=== PATIENT | male | born 1985 | race Caucasian/White ===

== ENCOUNTER → 2019-02-07 | Outpatient (CLI) | payer BC, SELFPAY ==
[2018-08-06 09:46] VITALS: BMI 41.8
[2019-02-07 13:47] LABS: Absolute Lymphocyte Count 2.13 X10^3/uL (0.83-4.51); Absolute Neutrophil Count 3.7 X10^3/uL (2.0-7.7); Basophil# 0.08 X10^3/uL; Basophil% 1.2 % (0-1); Eosinophil# 0.41 X10^3/uL; Hemoglobin 15.1 g/dL (13.0-16.5); Lymphocyte # 2.13 X10^3/ul (4.0); Mean Corp Hgb Conc 34.3 g/dL (32-36); Mean Corpuscular Hgb 29.7 pg (27.0-32.0); Mean Corpuscular Volume 86.4 fL (80-94); Mean Platelet Vol. 11.9 fl (6.2-12.0); Monocyte# 0.46 X10^3/uL; Monocyte% 6.7 % (0-10); NRBC Flagged by Analyzer 0 % (0-5); Neutrophil # 3.73 X10^3/uL (2.7-7.7); Neutrophil % 54.1 % (47-70); Platelet Count 178 K/mm3 (150-450); RBC Distribution Width CV 12.3 % (11.6-14.6); RBC Distribution Width SD 38.9 fl (35.1-43.9); Red Blood Count 5.09 M/mm3 (4.6-6.2); White Blood Count 6.9 K/mm3 (4.4-11.0)
[2019-02-07 14:19] LABS: Vitamin D,25 Hydroxy 24.2 ng/mL (29.95-100.01)
[2019-02-07 14:28] LABS: AST(SGOT) 38 U/L (15-37); Alanine Aminotransfer ALT/SGPT 72 U/L (16-61); Alkaline Phosphatase 92 U/L (45-117); Anion Gap 5 (5-15); BUN 11 mg/dL (7-18); BUN/Creat Ratio 12.5 RATIO (10-20); Calcium,Total 9.2 mg/dL (8.5-10.1); Chloride 104 mmol/L (98-107); Cholesterol 181 mg/dL (200); Creatinine, Serum 0.88 mg/dL (0.70-1.30); EST Glomerular Filtration Rate 105 mL/min (>60); Est Glom Filt Rate - Afr Amer 127 mL/min (>60); Globulin 3.9 g/dL (2.2-4.2); Glucose 162 mg/dL (74-106); High Density Lipoprotein 28 mg/dL; Potassium 3.8 mmol/L (3.5-5.1); Protein, Total 7.9 g/dL (6.4-8.2); Sodium Level 137 mmol/L (136-145); Thyroid Stim Hormone (TSH) 1.42 uIU/mL (0.358-3.74); Triglycerides 212 mg/dL; Very Low Density Lipoprotein 42 mg/dL (5-40)
== END | disposition home or self-care (01) ==
LOC: MFPLAB 12:12
PROVIDERS: Family Provider Family Medicine; PCP Family Medicine; Referring Provider Family Medicine; Visit Provider Family Medicine
DX: E11.65 Type 2 diabetes mellitus with hyperglycemia (principal); E55.9 Vitamin D deficiency, unspecified; C91.01 Acute lymphoblastic leukemia, in remission
CPT/HCPCS: 36415; 80053; 80061; 82306; 84443; 85025

== ENCOUNTER 2019-03-13 12:58 | Outpatient (RCR) | payer BC, SELFPAY ==
[2018-08-06 09:46] VITALS: BMI 41.8
== END 2019-03-27 23:59 ==
LOC: DC 12:58
PROVIDERS: Family Provider Family Medicine; PCP Family Medicine; Visit Provider Family Medicine
DX: E11.65 Type 2 diabetes mellitus with hyperglycemia (principal); Z71.3 Dietary counseling and surveillance
CPT/HCPCS: 97802

== ENCOUNTER 2019-04-10 09:56 | Outpatient (RCR) | payer BC, SELFPAY ==
[2018-08-06 09:46] VITALS: BMI 41.8
== END 2019-04-10 23:59 | disposition home or self-care (01) ==
LOC: DC 09:56
PROVIDERS: Family Provider Family Medicine; PCP Family Medicine; Visit Provider Family Medicine
DX: Z71.3 Dietary counseling and surveillance (principal); E11.65 Type 2 diabetes mellitus with hyperglycemia
CPT/HCPCS: 97803

== ENCOUNTER → 2019-06-30 20:05 | Outpatient (CLI) | payer BC, SELFPAY ==
[2018-08-06 09:46] VITALS: BMI 41.8
== END ==
LOC: SL 20:05
PROVIDERS: Family Provider Family Medicine; PCP Family Medicine; Referring Provider Nurse Practitioner Adult Health; Visit Provider Nurse Practitioner Adult Health
DX: G47.10 Hypersomnia, unspecified (principal)
CPT/HCPCS: 95810

== ENCOUNTER → 2019-08-04 20:00 | Outpatient (CLI) | payer BC, SELFPAY ==
[2018-08-06 09:46] VITALS: BMI 41.8
== END ==
LOC: SL 22:12
PROVIDERS: Family Provider Family Medicine; PCP Family Medicine; Referring Provider Nurse Practitioner Adult Health; Visit Provider Nurse Practitioner Adult Health
DX: G47.33 Obstructive sleep apnea (adult) (pediatric) (principal)
CPT/HCPCS: 95811

== ENCOUNTER → 2019-08-08 07:20 | Outpatient (CLI) | payer BC, SELFPAY ==
[2018-08-06 09:46] VITALS: BMI 41.8
[2019-08-08 10:32] LABS: ALB/GLOB Ratio 1.2 RATIO (0.9-2.4); AST(SGOT) 17 U/L (15-37); Alanine Aminotransfer ALT/SGPT 49 U/L (16-61); Albumin, Serum 4.4 g/dL (3.2-5.0); Alkaline Phosphatase 79 U/L (45-117); Anion Gap 4 (5-15); BUN 14 mg/dL (7-18); BUN/Creat Ratio 13.3 RATIO (10-20); Calcium,Total 9.7 mg/dL (8.5-10.1); Chloride 106 mmol/L (98-107); Cholesterol 162 mg/dL (200); Creatinine, Serum 1.05 mg/dL (0.70-1.30); EST Glomerular Filtration Rate 85 mL/min (>60); Est Glom Filt Rate - Afr Amer 103 mL/min (>60); Globulin 3.6 g/dL (2.2-4.2); Glucose 119 mg/dL (74-106); High Density Lipoprotein 37 mg/dL; Potassium 4.2 mmol/L (3.5-5.1); Sodium Level 139 mmol/L (136-145); Triglycerides 173 mg/dL; Very Low Density Lipoprotein 35 mg/dL (5-40); Vitamin D,25 Hydroxy 16.6 ng/mL (29.95-100.01)
== END ==
PROVIDERS: PCP Family Medicine; Referring Provider Family Medicine; Visit Provider Family Medicine
DX: E78.5 Hyperlipidemia, unspecified (principal); E11.9 Type 2 diabetes mellitus without complications; E55.9 Vitamin D deficiency, unspecified
CPT/HCPCS: 36415; 80053; 80061; 82306

== ENCOUNTER → 2019-08-28 10:36 | Outpatient (CLI) | payer BC, SELFPAY ==
[2018-08-06 09:46] VITALS: BMI 41.8
== END ==
PROVIDERS: PCP Family Medicine; Referring Provider Nurse Practitioner Acute Care; Visit Provider Nurse Practitioner Acute Care
DX: Z46.89 Encounter for fitting and adjustment of other specified devices (principal)

== ENCOUNTER → 2019-12-04 | Outpatient (CLI) | payer BC, SELFPAY ==
[2019-10-02 07:52] VITALS: BMI 41.8
[2019-12-04 12:43] LABS: Vitamin D,25 Hydroxy 33.5 ng/mL
[2019-12-04 12:45] LABS: Anion Gap 9 (5-15); BUN 10 mg/dL (7-18); BUN/Creat Ratio 10.2 RATIO (10-20); Calcium,Total 9.2 mg/dL (8.5-10.1); Chloride 106 mmol/L (98-107); Cholesterol 122 mg/dL (200); Creatinine, Serum 0.98 mg/dL (0.70-1.30); EST Glomerular Filtration Rate 92 mL/min (>60); Est Glom Filt Rate - Afr Amer 112 mL/min (>60); Glucose 121 mg/dL (74-106); High Density Lipoprotein 30 mg/dL; Potassium 4.3 mmol/L (3.5-5.1); Sodium Level 140 mmol/L (136-145); Triglycerides 98 mg/dL; Very Low Density Lipoprotein 20 mg/dL (5-40)
--- OUTSIDE RECORDS SUMMARY | 2020-04-14 09:35 | XMS RPT_ITS | CCD ---
:1985 External Reference #:[id number] Author Organization [facility] Care Team Providers Name Role Phone LESLY MARQUIS (EDITH) Attending Unavailable Results Result Name Value Range Unit Interpretation Flag Date Location progress on 2018-06 Protein mass HNO ID: [id number] Normal 07-08-19 [facility] Author: Bee Melo [place] ([id number]) Service: (none) Author Type: Nurse Practitioner Type: Progress Notes Filed: 07/08/2018 5:47 PM Note Text: Subjective HPI Pt presents with c/o for foreign body in left eye x 10 minut es. States was making salsa and thinks he accidentally wiped a h ot pepper seed into left eye. Could feel the seed moving around beneath upper eyelid. Wipe d it toward tear duct and then felt like it was under eyelid again. Did not actually see the seed in his eye, just felt it floating around. Denies eye pain, vision change. Wears glasses. Review of Systems Constitutional: Negative for chills and fever. Eyes: Negative for blurred vision, double vision, photophobi a, pain, discharge and redness. Objective Physical Exam Constitutional: He is oriented to person, place, and time an d well-developed, well-nourished, and in no distress. No distr ess. HENT: Head: Normocephalic. Right Ear: Hearing, tympanic membrane, external ear and ear canal normal. Left Ear: Hearing, tympanic membrane, external ear and ear c anal normal. Nose: Nose normal. No mucosal edema. Mouth/Throat: Uvula is midline, oropharynx is clear and mois t and mucous membranes are normal. No oropharyngeal exudate. Eyes: Pupils are equal, round, and reactive to light. EOM an d lids are normal. Lids are everted and swept, no foreign bodies found. Left eye exhibits no chemosis, no discharge, no exudate and no hordeo lum. No foreign body present in the left eye. Left conjunctiva is no t injected. Pupils unequal: vision 20/20 via ajay card. Eye exam WNL. After everting the eyelid, pt felt immediate relief of sx. L ooked around for a few minutes and could no longer feel anything in eye, beneath eye lid. Neck: Neck supple. Cardiovascular: Normal rate, regular rhythm and normal heart sounds. Exam reveals no gallop and no friction rub. No murmur heard. Pulmonary/Chest: Effort normal and breath sounds normal. No respiratory distress. He has no wheezes. He has no rales. Neurological: He is alert and oriented to person, place, and time. Skin: Skin is warm and dry. He is not diaphoretic. BP 124/88 Pulse 119 Temp 36.7 ?C (98 ?F) (Left Tympanic) Resp 16 Wt (!) 143.3 kg (316 lb) SpO2 97% BMI 41.69 kg/m? .Patient presents with: Eye Problem: seed in left eye No past medical history on file. No past surgical history on file. ALLERGIES Patient has no known allergies. MEDICATIONS trimethoprim-polymyxin eye drops (POLYTRIM) ophthalmic solut ion Use 1 Drop in both eyes every 6 hours for 7 days. Use in the affected e ye. No family history on file. Social History Substance Use Topics - Smoking status: Former Smoker Types: Cigarettes - Smokeless tobacco: Never Used - Alcohol use Not on file ASSESSMENT/PLAN: 1. Irritation of left eye - ICD9: 379.99, ICD10: H57.89 - POLYMYXIN B SULFATE 10,000 UNIT-TRIMETHOPRIM 1 MG/ML EYE D ROPS Instructed to f/u with opthamologist or ED if sx return estelita ght. Reviewed red flag SANDS acute eye. Pt verbalizes understandi ng of SANDS requiring emergent evaluation. The patient is instructed to return or seek emergency treatm ent if symptoms become worse or with any acute change in condition. The patient verbalizes understanding and is in agreement wit h plan of care. PARKER Bustillo on 2018-07-08 CNOV Office Visit (UCWSTR) Normal 07-08-19 19 [facility] GISELL COATES ([id number]) 1985 M [facility] Date Time Provider Department ([id number]) 07/08/18 4:45 PM BEE MELO [facility] During your visit today, we recorded the following informati on about you: Temperature Pulse Respiration Blood pressure 98 degrees 119/minute 16/minute 124/88 Weight 143.3 kg Bee Melo, CORPORATE RECEPTIONIST.FLORIST 07/08/2018 5:47 PM Signed Subjective HPI Pt presents with c/o for foreign body in left eye x 10 minut es. States was making salsa and thinks he accidentally wiped a hot pepper seed into left eye. Could feel the seed moving around beneath upper eyelid . Wiped it toward tear duct and then felt like it was under eyelid again. Did not actually see the seed in his eye, just felt it floating around. Denies eye pain, vision change. Wears glasses. Review of Systems Constitutional: Negative for chills and fever. Eyes: Negative for blurred vision, doubl e vision, photophobia, pain, discharge and redness. Objective Physical Exam Constitutional: He is oriented to person, place, and time and well-developed, well-nourished, and in no distress. No distress. HENT: Head: Normocephalic. Right Ear: Hearing, tympanic membrane, external ear and ear canal normal. Left Ear: Hearing, tympanic membrane, external ear and ear c anal normal. Nose: Nose normal. No mucosal edema. Mouth/Throat: Uvula is midline, oropharynx is clear and mois t and mucous membranes are normal. No oropharyngeal exudate. Eyes: Pupils are equal, round, and react ramila to light. EOM and lids are normal. Lids are everted and swept, no foreign bodies found. Left ey e exhibits no chemosis, no discharge, no e xudate and no hordeolum. No foreign body present in the left eye. Left conjunctiva is not injected. Pupils unequal: vision 20/20 via ajay card. Eye exam WNL. After everting the eyelid, pt felt immed iate relief of sx. Looked around for a few minutes and could no longer feel anything in eye, beneat h eye lid. Neck: Neck supple. Cardiovascular: Normal rate, regular rhythm and normal heart sounds. Exam reveals no gallop and no friction rub. No murmur heard. Pulmonary/Chest: Effort normal and breath sounds normal. No respiratory distress. He has no wheezes. He has no rales. Neurological: He is alert and oriented to person, place, and time. Skin: Skin is warm and dry. He is not diaphoretic. BP 124/88 Pulse 119 Temp 36.7 ?C (98 ?F) (Left Tympani c) Resp 16 Wt (!) 143.3 kg (316 lb) SpO2 97% BMI 41.69 kg/m? .Patient presents with: Eye Problem: seed in left eye No past medical history on file. No past surgical history on file. ALLERGIES Patient has no known allergies. MEDICATIONS trimethoprim-polymyxin eye drops (POLYTRIM) opht halmic solution Use 1 Drop in both eyes every 6 hours for 7 days. Use in the affected eye. No family history on file. Social History Substance Use Topics - Smoking status: Former Smoker Types: Cigarettes - Smokeless tobacco: Never Used - Alcohol use Not on file ASSESSMENT/PLAN: 1. Irritation of left eye - ICD9: 379.99, ICD10: H57.89 - POLYMYXIN B SULFATE 10,000 UNIT-TRIMETHOPRIM 1 MG/ML EYE D ROPS Instructed to f/u with opthamologist or ED if sx return estelita ght. Reviewed red flag SANDS acut e eye. Pt verbalizes understanding of SANDS requiring emergent evaluation. The patient is instructed to return or seek emergency deena tment if symptoms become worse or with any acute change in condition. The patient verbalizes understanding and is in agreement w [facility] plan of care. Bee Melo CNP Referring Provider: SELF [[id number]] Allergies As of Date: 07/08/2018 (No Known Allergies) Date Reviewed: 07/08/2018 Reviewed by: Marilyn Manley Ma - Fully Assessed Reason for Visit: Eye Problem [43] Cmt: seed in left eye Reason For Visit History Recorded Primary Visit Diagnosis:Irritation of left eye [H57.89] Order(s):trimethoprim-polymyxin eye drops (POLYT RIM) ophthalmic solutionUse 1 Drop in both eyes every 6 hours for 7 days. Use in the affec stacie eye.Disp: 1.4 mLRfl: 0 Prescriptions as of 07/08/2018 Sig: POLYMYXIN B SULFATE 10,000 UN* Use 1 Drop in both eyes every * Problem List As Of Date: 07/08/2018 (None) Prescriptions ordered this encounter Disp Refills Start End POLYMYXIN B SULFATE 10,000 UNIT-TRIM* 1.4 * 0 07/08/2018 Route: BOTH EYES Sig: Use 1 Drop in both eyes every 6 hours for 7 days. Use i n the affected eye. Encounter Status:Closed by BEE MELO CNP on progress on 2017-11 Protein mass HNO ID: [id number] Normal 12-16-[address] [place] [address] Author: Lesly Marquis (Pa) Clinic Service: (none) Jennifer mistry Author Type: Physician Collar Folder Operator ([id number]) Type: Progress Notes Filed: 12/15/2017 12:05 PM Note Text: HISTORY AND PHYSICAL Gisell Coates 1985 REFERRING PHYSICIAN: Self CHIEF COMPLAINT: Thrombosed hemorrhoid HPI: Gisell is a 32 year old male with a complaint of a pain ful external hemorrhoid. He has noticed anal pain and swelling for the pa st few days. He denies drainage from the thrombosed hemorrhoid. Gisell no sameer a remote history of a thrombosed hemorrhoid which required inc ision and evacuation. He denies a history of constipation and strainin g. 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 The patient was seen at urgent care and was referred for marilu atment. SIGNIFICANT MEDICAL PROBLEMS: No past medical history on lester e. OPERATIONS: No past surgical history on file. CURRENT MEDICATIONS: No current outpatient prescriptions on file. No current facility-administered medications for this visit. ALLERGIES: Patient has no known allergies. PERSONAL HISTORY: Social History Marital status: Spouse name: Years of education: Number of children: Social History Main Topics Smoking status: Former Smoker Packs/day: 0.00 Years: 0.00 Types: Cigarettes Smokeless tobacco: Never Used FAMILY HISTORY: No family history on file. REVIEW OF SYMPTOMS: The review of systems data was entered by the nurse and revi ewed by dc Nursing Notes: Lucie Duran CRISTINA 12/14/2017 2:08 PM Signed REVIEW OF SYSTEMS: General: The patient NOTES fatigue, denies weight loss, edyta es weight gain, denies feeling hot, and denies feelings of cold . Eyes: The patient denies glaucoma, denies eye injury/surgery , wears glasses or contacts. Ear/Nose/Throat: The patient NOTES allergies, NOTES hayfever , denies ear infections, and denies bloody noses. Cardiovascular: The patient denies chest pain, denies heart disease, denies high blood pressure,denies cardiac stent, denies prio r heart attack, denies irregular heart beat, denies high cholesterol , denies poor circulation, denies heart failure, other cardiac issues, den ies claudication, denies cold feet, denies peripheral arterial s tent. Respiratory: The patient denies tuberculosis, NOTES pneumoni a, denies frequent cough, denies pulmonary embolism, denies giovanny rtness of breath, and denies coughing up blood. Gastrointestinal: The patient denies difficulty swallowing, NOTES acid reflux, denies ulcers, NOTES vomiting, denies jaundice/ hepatitis, denies gallbladder problems, denies black or tarry stools, N OTES hemorrhoids, denies bleeding from rectum, denies diverticuli tis, denies constipation, NOTES diarrhea, denies loss of stool control, and denies hernias. Kidney/Bladder: The patient NOTES kidney stones, denies urin e infections, and denies bloody urine. Skin: The patient denies a history of skin cancer, denies bleeding/changing moles, and denies a history of skin rash. Neurologic: The patient denies a history of epilepsy/convuls ions, NOTES headaches, denies head/spinal injuries, and NOTES stro ke/TIA. Psychiatric: The patient denies psychiatric medications, den ies depression, and denies voices, denies substance abuse. Endocrine: The patient denies thyroid disorders, denies diab etes, and denies hormonal problems. Hematologic: The patient denies a history of bruising, denie s bleeding, and denies anemia, denies blood clots. Infections: The patient denies a history of measles and mump s, denies rheumatic fever, and denies sexually transmitted dise ases. Musculoskeletal: The patient NOTES back pain/injury, NOTES b ack problems, denies sciatica, NOTES knee/foot trouble, denies a rthritis, or NOTES gout. When was patient's last Mammogram screening? N/A Last Colonoscopy: None Lucie Duran LPN I have confirmed and edited as necessary, the PFSH and CHARLIE o btained by others. PHYSICAL EXAMINATION: General: The patient is 32 year old male, well nourished, we ll hydrated in no acute distress. The patient is oriented to time, place , and person. VITALS: Blood pressure 138/76, pulse 80, height 185.4 cm (6' 1), weight (!) 143.3 kg (316 lb). Body mass index is 41.69 kg/m?. HEENT: exam deferred Respiratory: exam deferred Cardiac: exam deferred. Abdominal exam: exam deferred Rectal exam: prolapsing thrombosed hemorrhoids in right uppe r quadrant. Digital rectal exam - deferred Extremities: exam deferred Other: LABORATORY VALUES: As Noted RADIOLOGIC STUDIES: As Noted PROCEDURE: INCISION AND EVACUATION OF THROMBOSED HEMORRHOID After consent was obtained and the site, person, and procedu re verified, the patient`s skin was prepped and draped in the usual fashi on. A combination of Lidocaine and Marcaine was injected into the skin and the hemorrhoidal complex. A linear incision was made over the po int of thrombosis. A small amount of thrombus was evacuated. Pressu re was held to obtain hemostasis. The patient tolerated the procedure we ll. Assessment IMPRESSION: STATUS POST INCISION AND EVACUATION OF THROMBOSE D HEMORRHOID PLAN: Gisell is instructed to perform sitz baths twice a day and after each bowel movement. Place dibucaine ointment on anus as nee ded and before all bowel movements. Keep stools soft and avoid strai aubrey if possible. Some bleeding from the incision site where the blood clot wa s removed is common. If bleeding presists, press on the area with a clean gauze or towel. If pain increases, a new thrombosed hemorrhoid may be presen t. Return immediately. Return if symptoms fail to improve. Diagnoses: (K64.5) External hemorrhoid, thrombosed (primary encounter diagnosis) Return to Clinic: The patient is instructed to follow-up wit h me as needed. NELLIE Russ on 2017-12-14 CNOV Office Visit (GENSWS) Normal 12-15-19 [facility] GISELL COATES ([id number]) 1985 [facility] Date Time Provider Department ([id number]) 12/14/17 2:00 PM LESLY MARQUIS) JULIANNE During your visit today, we recorded the following informati on about you: Pulse Blood pressure Weight Height 80/minute 138/76 143.3 kg 1.854 m Lucie Duran LPN 12/14/2017 2:08 PM Signed REVIEW OF SYSTEMS: General: The patient NOTES fatigue, denies weight loss, edyta es weight gain, denies feeling hot, and denies feelings of cold. Eyes: The patient denies glaucoma, denies eye injury/surgery , wears glasses or contacts. Ear/Nose/Throat: The patient NOTES allergies, NOTES hayfever , denies ear infections, and denies bloody noses. Cardiovascular: The patient denies chest pain, denies heart disease, denies high blood pressure,denies cardiac stent, denies pr ior heart attack, denies irregular heart beat, denies high cholesterol, denies poor circulation, denies heart failure, other cardiac issues, denies cla udication, denies cold feet, denies peripheral arterial stent. Respiratory: The patient denies tuberculosis, NOTES pneumoni a, denies frequent cough, denies pulmonary embolism, denies shortness of breath, and denies coughing up blood. Gastrointestinal: The patient denies difficulty swallowing, NOTES acid reflux, denies ulcers, NOTES vomiting, denies jaundice/hepat itis, denies gallbladder problems, denies black or tarry stoo ls, NOTES hemorrhoids, denies bleeding from rectum, denies diverticulitis, denies constipa tion, NOTES diarrhea, denies loss of stool control, and denies hernias. Kidney/Bladder: The patient NOTES kidney stones, denies urin e infections, and denies bloody urine. Skin: The patient denies a history of skin cancer, denies bleeding/changing moles, and denies a history of skin rash. Neurologic: The patient denies a history of epilepsy/convuls ions, NOTES headaches, denies head/spinal injuries, and NOTES stroke/TIA . Psychiatric: The patient denies psychiatric medications, den ies depression, and denies voices, denies substance abuse. Endocrine: The patient denies thyroid disorders, denies diab etes, and denies hormonal problems. Hematologic: The patient denies a history of bruising, denie s bleeding, and denies anemia, denies blood clots. Infections: The patient denies a history of measles and mump s, denies rheumatic fever, and denies sexually transmitted diseases. Musculoskeletal: The patient NOTES back pain/injury, NOTES b ack problems, denies sciatica, NOTES knee/foot trouble, denies arthritis, or NOTES gout. When was patient's last Mammogram screening? N/A Last Colonoscopy: None Lucie Marquis PA-C 12/14/2017 2:37 PM Signed The following instructions are important for you related to your office visit today with the [facility]. Instructions After THROMBOSED HEMORRHOID IANDD STATUS POST INCISION AND EVACUATION OF THROMBOSED HEMORRHOID Gisell is instructed to perform sitz baths twice a day and after each bowel movement. Place dibucaine ointment on anus as needed and bef ore all bowel movements. Keep stools soft and avoid straining if possible. Some bleeding from the incision site where the blood clot wa s removed is common. If bleeding presists, press on the area with a clean gauze or towel. If pain increases, a new thrombosed hemorrhoid may be presen t. Return immediately. Return if symptoms fail to improve. If you note any additional difficulties, questions, or con cerns, you should contact our office immediately @ and ask to be transferred to the General Surgery department. Lesly Marquis PA-C 12/15/2017 12:05 PM Signed HISTORY AND PHYSICAL Gisell Coates 1985 REFERRING PHYSICIAN: Self CHIEF COMPLAINT: Thrombosed hemorrhoid HPI: Gisell is a 32 year old male with a complaint of a pain ful external hemorrhoid. He has noticed anal pain and swelling for the pa st few days. He denies drainage from the thrombosed hemorrhoid. Gisell no sameer a remote history of a thrombosed hemorrhoid which require d incision and evacuation. He denies a history of constipation and straining. 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 [facility] SIGNIFICANT MEDICAL PROBLEMS: No past medical history on lester e. OPERATIONS: No past surgical history on file. CURRENT MEDICATIONS: No current outpatient prescriptions on file. No current facility-administered medications for this visit. ALLERGIES: Patient has no known allergies. PERSONAL HISTORY: Social History Marital status: Spouse name: Years of education: Number of children: Social History Main Topics Smoking status: Former Smoker Packs/day: 0.00 Years: 0.00 Types: Cigarettes Smokeless tobacco: Never Used FAMILY HISTORY: No family history on file. REVIEW OF SYMPTOMS: The review of systems data was entered by the nurse and revi ewed by dc Nursing Notes: Lucie Duran LPN 12/14/2017 2:08 PM Signed REVIEW OF SYSTEMS: General: The patient NOTES fatigue, denies weight loss, edyta es weight gain, denies feeling hot, and denies feelings of cold. Eyes: The patient denies glaucoma, denies eye injury/surgery , wears glasses or contacts. Ear/Nose/Throat: The patient NOTES allergies, NOTES hayfever , denies ear infections, and denies bloody noses. Cardiovascular: The patient denies chest pain, denies heart disease, denies high blood pressure,denies cardiac stent, denies pr ior heart attack, denies irregular heart beat, denies high cholesterol, denies poor circulation, denies heart failure, other cardiac issues, denies cla udication, denies cold feet, denies peripheral arterial stent. Respiratory: The patient denies tuberculosis, NOTES pneumoni a, denies frequent cough, denies pulmonary embolism, denies shortness of breath, and denies coughing up blood. Gastrointestinal: The patient denies difficulty swallowing, NOTES acid reflux, denies ulcers, NOTES vomiting, denies jaundice/hepat itis, denies gallbladder problems, denies black or tarry stoo ls, NOTES hemorrhoids, denies bleeding from rectum, denies diverticulitis, denies constipa tion, NOTES diarrhea, denies loss of stool control, and denies hernias. Kidney/Bladder: The patient NOTES kidney stones, denies urin e infections, and denies bloody urine. Skin: The patient denies a history of skin cancer, denies bleeding/changing moles, and denies a history of skin rash. Neurologic: The patient denies a history of epilepsy/convuls ions, NOTES headaches, denies head/spinal injuries, and NOTES stroke/TIA . Psychiatric: The patient denies psychiatric medications, den ies depression, and denies voices, denies substance abuse. Endocrine: The patient denies thyroid disorders, denies diab etes, and denies hormonal problems. Hematologic: The patient denies a history of bruising, denie s bleeding, and denies anemia, denies blood clots. Infections: The patient denies a history of measles and mump s, denies rheumatic fever, and denies sexually transmitted diseases. Musculoskeletal: The patient NOTES back pain/injury, NOTES b ack problems, denies sciatica, NOTES knee/foot trouble, denies arthritis, or NOTES gout. When was patient's last Mammogram screening? N/A Last Colonoscopy: None Lucie Duran LPN I have confirmed and edited as necessary , the PFSH and ROS obtained by others. PHYSICAL EXAMINATION: General: The patient is 32 year old male, well n ourished, well hydrated in no acute distress. The patient is oriented to time, place, and person. VITALS: Blood pressure 138/76, pulse 80, height 185.4 cm (6' 1), weight (!) 143.3 kg (316 lb). Body mass index is 41.69 kg/m?. HEENT: exam deferred Respiratory: exam deferred Cardiac: exam deferred. Abdominal exam: exam deferred Rectal exam: prolapsing thrombosed hemorrhoids in right uppe r quadrant. Digital rectal exam - deferred Extremities: exam deferred Other: LABORATORY VALUES: As Noted RADIOLOGIC STUDIES: As Noted PROCEDURE: INCISION AND EVACUATION OF THROMBOSED HEMORRHOID After consent was obtained and the site, person, and p rocedure verified, the patient`s skin was prepped and draped in the usual fas hion. A combination of Lidocaine and Marcaine was i njected into the skin and the hemorrhoidal complex. A linear incision was made over the point of thrombosis. A s mall amount of thrombus was evacuated. Pressure was held to obtain hemost asis. The patient tolerated the procedure well. Assessment IMPRESSION: STATUS POST INCISION AND EVACUATION OF THROMBOSE D HEMORRHOID PLAN: Gisell is instructed to perform sitz baths twice a d ay and after each bowel movement. Place dibucaine ointment on anus as needed a nd before all bowel movements. Keep stools soft and avoid straining if pos sible. Some bleeding from the incision site where the blood clot wa s removed is common. If bleeding presists, press on the area with a clean gauze or towel. If pain increases, a new thrombosed hemorrhoid may be presen t. Return immediately. Return if symptoms fail to improve. Diagnoses: (K64.5) External hemorrhoid, thrombosed (primary encounter diagnosis) Return to Clinic: The patient is instructed to follow-up w ith me as needed. Lesly Marquis PA-C Referring Provider: SELF [[id number]] Allergies As of Date: 12/14/2017 (No Known Allergies) Date Reviewed: 12/14/2017 Reviewed by: Lucie Duran LPN - Fully Assessed Reason for Visit: Hemorrhoids [[id number]] Primary Visit Diagnosis:External hemorrhoid, thrombosed [K64 .5] Problem List As Of Date: 12/14/2017 (None) Other instructions from your clinician: The following instructions are important for you related to your office visit today with the [facility]. Instructions After THROMBOSED HEMORRHOID IANDD STATUS POST INCISION AND EVACUATION OF THROMBOSED HEMORRHOID Gisell is instructed to perform sitz baths twice a day and a fter each bowel movement. Place dibucaine ointment on anus as needed a nd before all bowel movements. Keep stools soft and avoid straining if pos sible. Some bleeding from the incision site where the blood clot wa s removed is common. If bleeding presists, press on the area with a clean gauze or towel. If pain increases, a new thrombosed hemorrhoid may be presen t. Return immediately. Return if symptoms fail to improve. If you note any additional difficulties, questions, or valencia rns, you should contact our office immediately @ [phone] and ask to be transferred to the General Surgery department. Visit Notes: >> Lucie Del Rio Dec 14, 2017 2:07 PM Status: Signed REVIEW OF SYSTEMS: General: The patient NOTES fatigue, denies weight loss, edyta es weight gain, denies feeling hot, and denies feelings of cold . Eyes: The patient denies glaucoma, denies eye injury/surgery , wears glasses or contacts. Ear/Nose/Throat: The patient NOTES allergies, NOTES hayfever , denies ear infections, and denies bloody noses. Cardiovascular: The patient denies chest pain, denies heart disease, denies high blood pressure,denies cardiac stent, denies prio r heart attack, denies irregular heart beat, denies high cholesterol , denies poor circulation, denies heart failure, other cardiac issues, den ies claudication, denies cold feet, denies peripheral arterial s tent. Respiratory: The patient denies tuberculosis, NOTES pneumoni a, denies frequent cough, denies pulmonary embolism, denies giovanny rtness of breath, and denies coughing up blood. Gastrointestinal: The patient denies difficulty swallowing, NOTES acid reflux, denies ulcers, NOTES vomiting, denies jaundice/ hepatitis, denies gallbladder problems, denies black or tarry stools, N OTES hemorrhoids, denies bleeding from rectum, denies diverticuli tis, denies constipation, NOTES diarrhea, denies loss of stool control, and denies hernias. Kidney/Bladder: The patient NOTES kidney stones, denies urin e infections, and denies bloody urine. Skin: The patient denies a history of skin cancer, denies bleeding/changing moles, and denies a history of skin rash. Neurologic: The patient denies a history of epilepsy/convuls ions, NOTES headaches, denies head/spinal injuries, and NOTES stro ke/TIA. Psychiatric: The patient denies psychiatric medications, den ies depression, and denies voices, denies substance abuse. Endocrine: The patient denies thyroid disorders, denies diab etes, and denies hormonal problems. Hematologic: The patient denies a history of bruising, denie s bleeding, and denies anemia, denies blood clots. Infections: The patient denies a history of measles and mump s, denies rheumatic fever, and denies sexually transmitted dise ases. Musculoskeletal: The patient NOTES back pain/injury, NOTES b ack problems, denies sciatica, NOTES knee/foot trouble, denies a rthritis, or NOTES gout. When was patient's last Mammogram screening? N/A Last Colonoscopy: None Lucie Duran LPN Follow-up and Disposition History Recorded Encounter Status:Closed by LESLY MARQUIS PA-C on 12/15/17 progress on 2017-11 Protein mass HNO ID: [id number] Normal 12-14-19 [facility] Author: Geno Patel) [facility] Service: (none) ([phone]) Author Type: Nurse Practitioner Type: Progress Notes Filed: 12/13/2017 5:25 PM Note Text: Subjective HPI HPI Gisell Coates is a 32 year old male who presents today for CC of hemorrhoid/itching/pain. This started 1 day ago. Has tried o tc cream with mild relief. Symptoms are worsened by nothig. Risk fact ors hx of hemorhiods. .Patient presents with: Rectal Problem: pain x yesterday morning No past medical history on file. No past surgical history on file. ALLERGIES Patient has no known allergies. MEDICATIONS No prescriptions on file. No family history on file. Social History Substance Use Topics - Smoking status: Former Smoker Types: Cigarettes - Smokeless tobacco: Never Used - Alcohol use Not on file Review of Systems Constitutional: Negative for fever. Gastrointestinal: Negative for abdominal pain, blood in stoo l, constipation and diarrhea. Skin: Positive for itching. Negative for rash. Objective Blood pressure 138/86, pulse 74, temperature 36.8 ?C (98.2 ? F), temperature source Tympanic, resp. rate 16, weight (!) 141.5 kg (312 lb). Physical Exam Constitutional: He is oriented to person, place, and time an d well-developed, well-nourished, and in no distress. Non-toxi c appearance. He does not have a sickly appearance. No distress. HENT: Head: Normocephalic and atraumatic. Pulmonary/Chest: Effort normal. No accessory muscle usage. N o respiratory distress. Genitourinary: Rectal exam shows external hemorrhoid (larg m ost left wall of rectum. mild tenderness firm. ). Neurological: He is alert and oriented to person, place, and time. Skin: He is not diaphoretic. ASSESSMENT/PLAN: 1. External hemorrhoid - ICD9: 455.3, ICD10: K64.4 -patient will continue using otc cream -has appointment with general surgery tomorrow morning at 8 -given educational handout. Prescription instructions reviewed with patient as applicabl e. Patient advised if symptoms do not improve or if symptoms worsen olga lidia ner, to contact the office for further evaluation by their primary c are physician. Potential red flag symptoms discussed with the patient. Revi ewed appropriate action plan to take if red flag symptoms occur. Patient agreeable to treatment plan. Geno Lynch APRN.CNP cnov on 2017-12-13 CNOV Office Visit ([facility]) Normal 12-14-[address] [place] [address] Clinic GISELL COATES ([id number]) 1985 [facility] Date Time Provider Department ([id number]) 12/13/17 4:00 PM GENO LYNCH (PARKER) WSTR During your visit today, we recorded the following informati on about you: Temperature Pulse Respiration Blood pressure 98.2 degrees 74/minute 16/minute 138/86 Weight 141.5 kg Geno Lynch APRN.CNP 12/13/2017 4:15 PM Signed Hemorrhoids Hemorrhoids are veins covered with the lining of the anal canal located in or around the anus. Hemorrhoids can be external, internal or a combination of both (interno-external). External hemorrhoids can be skin alone or skin with a vein underneath. Internal hemorrhoids are dilated vei ns which protrude inside when small or can sometimes extend outside the anus e ither after a bowel movement; they can also be present externally all the time. Hemorrhoids are usually not painful. Small hemor rhoids cannot be seen but can bleed after a hard bowel movement/straining or too galdino quent bowel movements. Hemorrhoids that protrude out after a bowel movement often g o back in spontaneously. Occasionally they have to be manually pushe d in. Hemorrhoids that protrude out and do not go back in can sometimes get la rge and form a clot; these are called thrombosed prolapsed hemorrhoids. External hemorrhoids can als o form a clot and this can be very painful; this is called a thrombosed external hemorrhoid. Certain conditions may cause internal hemorrhoid s to bulge, become irritated, and bleed, including: Trauma during childbirth The extra weight of Obesity Chronic constipation with straining Anal intercourse What are the symptoms of internal hemorrhoids? Painless rectal bleeding on the toilet p aper or in the toilet bowl is the most common symptom. Pain can occur with thrombos ed hemorrhoids or hemorrhoids that can suddenly not be reposited in the anal canal. Another symptom is the protrusion of the hemorrhoids a fter a bowel movement; the hemorrhoids either spontaneously go back in or have to b e pushed in manually. What are the symptoms of external hemorrhoids? A grape-like lump on the anus Itching and soreness in and around the anus Blood on underwear, toilet paper, the surface of the s tool, or in the toilet bowl What causes hemorrhoids? Hemorrhoids are caused by repeated pressure and strain, which might be caused by: Straining at stool Frequent constipation (hard or difficult bowel movements) Diarrhea (frequent, loose, watery stool) (especially in the third trimester) Cirrhosis of the liver (can cause pooling of blood in the vessels around the rectum) How are hemorrhoids diagnosed? Usually, an explanation of your symptoms is an i mportant clue to your doctor. On examination, external hemorrhoids and bulging hemor rhoids may be visible. When hemorrhoids are not visible beyond the anus, your doctor will examine the inside of the anal canal using a lighted instrument called a n anoscope. Often, your doctor will recommend a deta iled examination of your sigmoid colon and rectum using a lighted s cope (a procedure called flexible sigmoidoscopy) to ensure that there is no inflammatory disease such as Crohn's disease or ulcerative colitis or cancer. How can I relieve the acute pain? Take warms soaks in the bath (sitz baths). Sit i n plain, warm water for about 10 minutes several times a day. Apply a hemorrhoid cream, or use a suppository. Follow the directions on the package. Don't strain during bowel movements. Keep stools soft. See your doctor. How can I relieve constipation? Increase the amount of fiber in your diet. Good source s of fiber are fruits, vegetables, and whole grains . Five to ten servings of fruits and vegetables are recommended each day. Fiber supplements might be helpful - examples include Metamucil? and Citrucel?. Sparingly use zigm-[id number]-zqrnrbl laxatives or stool soft eners. Stool softeners such as Colace? are relatively safe, but prolonged use of osmotic or stimulant laxatives might not be. Exercise regularly. Even walking regularly helps improve t he normal flow of material through the intestine. Empty the bowels when you fe el the urge to do so. Immediately following a meal, the body will have a natural urge to defecate. That's a go od time to plan a visit to the bathroom. How can I prevent hemorrhoids? The best way to prevent hemorrhoids is to keep bowel movemen ts regular and stool soft. Try some of the tips for relieving constipation listed above. Also, avoid prolonged standing, sitting, and heavy lifting, and chronic coughing, straining at stool, and aggressive wiping. How are hemorrhoids treated? Occasional rectal bleeding can be contro lled by keeping the stools regular and soft. An examination is essential to rule out other causes of blee ding. Painful hemorrhoids can be treated with: Warm tub baths several times a day in plain, warm water for about 10 minutes In some cases, hemorrhoids must be treated surgically. Surge ry is used to shrink and or excise (cut out) the hemorrhoidal tissue. A number of methods might be used to remove or reduce the si ze of internal hemorrhoids. These techniques include: Rubber band ligation - A rubber band is placed around the ba se of the hemorrhoid inside the rectum. The band cuts off circulation, causing the hemorrhoid to wither away within a few days. This can be don e in an office setting and does not need anesthesia. Sclerotherapy - A chemical solution is injected around the b lood vessel to shrink the hemorrhoid. This is not done routinely for hemorr hoids. Infrared coagulation - A special device is used to bur n hemorrhoidal tissue. This can treat small hemorrhoids. Procedure for prolapsed hemorrhoids (PPH) - This is done for hemorrhoids that come out of the anal canal. This is done under anesthesia and uses a device to fix the hemorrhoids at the position from where they came shabnam n. Hemorrhoidal arterial ligation - This can be done for differ ent grades of hemorrhoids and uses a Doppler probe to identify and t ie the vessels feeding the hemorrhoid, thereby shrinking it. Hemorrhoidectomy - Occasionally, extensive or severe interna l or external hemorrhoids might require removal by surgery known as hemorrhoidectomy. This procedure involves excision of the hemorrhoid and the skin o verlying it. ?Copyright [id number] [facility]. All ri ghts reserved This information is provided by the [facility] and i s not intended to replace the medical advice of your doctor or health care pro vider. Please consult your health care provider for advice about a specifi c medical condition. For additional health information, please conta ct the [facility] [employer] [facility] Information at the [facility] or toll-free extension [phone]. If you prefer, you may visit [email or web address] or [email or web address]. This document was last reviewed on: 2009 index#[id number] Geno Lynch APRN.CNP 12/13/2017 5:25 PM Signed Subjective HPI HPI Gisell Coates is a 32 year old male who presents today for CC of hemorrhoid/itching/pain. This started 1 day ago. Has tried o tc cream with mild relief. Symptoms are worsened by nothig. Risk fac tors hx of hemorhiods. .Patient presents with: Rectal Problem: pain x yesterday morning No past medical history on file. No past surgical history on file. ALLERGIES Patient has no known allergies. MEDICATIONS No prescriptions on file. No family history on file. Social History Substance Use Topics - Smoking status: Former Smoker Types: Cigarettes - Smokeless tobacco: Never Used - Alcohol use Not on file Review of Systems Constitutional: Negative for fever. Gastrointestinal: Negative f or abdominal pain, blood in stool, constipation and diarrhea. Skin: Positive for itching. Negative for rash. Objective Blood pressure 138/86, pulse 74, temperature 36.8 ?C (98.2 ?F), temperature source Tympanic, resp. rate 16, weight (!) 141.5 kg (312 lb) . Physical Exam Constitutional: He is oriented to person, place, and time and well-developed, well-nourished, and in no distress. Non-toxic appearan ce. He does not have a sickly appearance. No distress. HENT: Head: Normocephalic and atraumatic. Pulmonary/Chest: Effort normal. No accessory muscle usage. N o respiratory distress. Genitourinary: Rectal exam shows external hemorrhoid ( larg most left wall of rectum. mild tenderness firm. ). Neurological: He is alert and oriented to person, place, and time. Skin: He is not diaphoretic. ASSESSMENT/PLAN: 1. External hemorrhoid - ICD9: 455.3, ICD10: K64.4 -patient will continue using otc cream -has appointment with general surgery tomorrow morning at 8 -given educational handout. Prescription instructions reviewed with patient as applicable. Patient advised if symptoms do not improve or if symptom s worsen sooner, to contact the office for further evaluation by their primary care physician. Pote ntial red flag symptoms discussed with the patient. Reviewed ap propriate action plan to take if red flag symptoms occur. Patient agreeable to treatment renetta chow. Geno Lynch APRN.PARKER Referring Provider: SELF [[id number]] Allergies As of Date: 12/13/2017 (No Known Allergies) Date Reviewed: 12/13/2017 Reviewed by: Geno (Parker) - Fully Assessed Reason for Visit: Rectal Problem [93] Cmt: pain x yesterday morning Primary Visit Diagnosis:External hemorrhoid [K64.4] Problem List As Of Date: 12/13/2017 (None) Other instructions from your clinician: Hemorrhoids Hemorrhoids are veins covered with the lining of the anal ca nal located in or around the anus. Hemorrhoids can be external, internal or a combination of both (interno-external). External hemorrhoids can be skin alone or skin with a vein underneath. Internal hemorrhoids are dilated vei ns which protrude inside when small or can sometimes extend outside t he anus either after a bowel movement; they can also be present externally all the time. Hemorrhoids are usually not painful. Small hemorrhoids canno t be seen but can bleed after a hard bowel movement/straining or too frequ ent bowel movements. Hemorrhoids that protrude out after a bowel movem ent often go back in spontaneously. Occasionally they have to be manually pushed in. Hemorrhoids that protrude out and do not go back in can some times get large and form a clot; these are called thrombosed prolapsed hemorrhoids. External hemorrhoids can also form a clot and this can be ve ry painful; this is called a thrombosed external hemorrhoid. Certain conditions may cause internal hemorrhoids to bulge, become irritated, and bleed, including: Trauma during childbirth The extra weight of Obesity Chronic constipation with straining Anal intercourse What are the symptoms of internal hemorrhoids? Painless rectal bleeding on the toilet paper or in the toile t bowl is the most common symptom. Pain can occur with thrombosed hemorrhoids or hemorrhoids th at can suddenly not be reposited in the anal canal. Another symptom is the protrusion of the hemorrhoids after a bowel movement; the hemorrhoids either spontaneously go back in or have to be pushed in manually. What are the symptoms of external hemorrhoids? A grape-like lump on the anus Itching and soreness in and around the anus Blood on underwear, toilet paper, the surface of the stool, or in the toilet bowl What causes hemorrhoids? Hemorrhoids are caused by repeated pressure and strain, whic h might be caused by: Straining at stool Frequent constipation (hard or difficult bowel movements) Diarrhea (frequent, loose, watery stool) (especially in the third trimester) Cirrhosis of the liver (can cause pooling of blood in the ve ssels around the rectum) How are hemorrhoids diagnosed? Usually, an explanation of your symptoms is an important clu e to your doctor. On examination, external hemorrhoids and bulging hem orrhoids may be visible. When hemorrhoids are not visible beyond the anus, your docto r will examine the inside of the anal canal using a lighted instrument call ed an anoscope. Often, your doctor will recommend a detailed examination of your sigmoid colon and rectum using a lighted scope (a procedure called f lexible sigmoidoscopy) to ensure that there is no inflammatory disea se such as Crohn's disease or ulcerative colitis or cancer. How can I relieve the acute pain? Take warms soaks in the bath (sitz baths). Sit in plain, war m water for about 10 minutes several times a day. Apply a hemorrhoid cream, or use a suppository. Follow the d irections on the package. Don't strain during bowel movements. Keep stools soft. See your doctor. How can I relieve constipation? Increase the amount of fiber in your diet. Good sources of f iber are fruits, vegetables, and whole grains. Five to ten servings o f fruits and vegetables are recommended each day. Fiber supplements might be helpful - examples include Metamucil? and Citrucel?. Sparingly use duxc-atb-kqjwteo laxatives or stool softeners. Stool softeners such as Colace? are relatively safe, but prolonged use of osmotic or stimulant laxatives might not be. Exercise regularly. Even walking regularly helps improve the normal flow of material through the intestine. Empty the bowels when you feel the urge to do so. Immediatel y following a meal, the body will have a natural urge to defecate. That's a good time to plan a visit to the bathroom. How can I prevent hemorrhoids? The best way to prevent hemorrhoids is to keep bowel movemen ts regular and stool soft. Try some of the tips for relieving constipation listed above. Also, avoid prolonged standing, sitting, and heavy lifting, and chronic coughing, straining at stool, and aggressive wiping. How are hemorrhoids treated? Occasional rectal bleeding can be controlled by keeping the stools regular and soft. An examination is essential to rule out other causes of blee ding. Painful hemorrhoids can be treated with: Warm tub baths rosemarie ral times a day in plain, warm water for about 10 minutes In some cases, hemorrhoids must be treated surgically. Surge ry is used to shrink and or excise (cut out) the hemorrhoidal tissue. A number of methods might be used to remove or reduce the si ze of internal hemorrhoids. These techniques include: Rubber band ligation - A rubber band is placed around the ba se of the hemorrhoid inside the rectum. The band cuts off circulation, causing the hemorrhoid to wither away within a few days. This can be don e in an office setting and does not need anesthesia. Sclerotherapy - A chemical solution is injected around the b lood vessel to shrink the hemorrhoid. This is not done routinely for hemorr hoids. Infrared coagulation - A special device is used to burn hemo rrhoidal tissue. This can treat small hemorrhoids. Procedure for prolapsed hemorrhoids (PPH) - This is done for hemorrhoids that come out of the anal canal. This is done under anesthes ia and uses a device to fix the hemorrhoids at the position from where the y came down. Hemorrhoidal arterial ligation - This can be done for differ ent grades of hemorrhoids and uses a Doppler probe to identify and tie the vessels feeding the hemorrhoid, thereby shrinking it. Hemorrhoidectomy - Occasionally, extensive or severe interna l or external hemorrhoids might require removal by surgery known as hemorr hoidectomy. This procedure involves excision of the hemorrhoid and the s kin overlying it. ?Copyright 9999-7343 [facility]. All ri ghts reserved This information is provided by the [facility] and is not intended to replace the medical advice of your doctor or health care provider. Please consult your health care provider for advice about a specific medical condition. For additional health information, please contact the [facility] [employer] [facility] Information at the [facility] or toll-free extension [phone]. If you prefer, you may visit [email or web address] or [email or web address]. This document was last revie wed on: 2009 index#[id number] Encounter Status:Closed by GENO LYNCH CNP on 12/13/17 Encounters Date Type Reason Provider Location 07-08-2018 - Patient encounter [facility] 07-11-2018 procedure [place] (0000 0) 12-14-2017 - Patient encounter LESLY Dubois ([place]) [facility] 12-16-2017 procedure [place] (0000 0) 12-13-2017 - Patient encounter [facility] 12-15-2017 procedure [place] (0000 0) Summary Purpose Family History No Family History Records Found Advance Directives No Advanced Directives Records Found Additional Source Comments FOR RECORDS PERTAINING TO PATIENTS WHO ARE OR HAVE BEEN ENROLLED IN A CHEMICAL DEPENDENCY/SUBSTANCE ABUSE PROGRAM, SOME INFORMATION MAY BE OMITTED. This clinical summary was aggregated from multiple sources. Caution should be exercised in using it in the provision of clinical care. This summary normalizes information from multiple sources, and as a consequence, information in this document may materially changethe coding, format and clinical context of patient data. In addition, data may be omittedin some cases. CLINICAL DECISIONS SHOULD BE BASED ON THE PRIMARY CLINICAL RECORDS. [facility] provides no warranty or guarantee of the accuracy or completeness of information in this document. UNRECOGNIZED CONTENT PROVIDED BELOW FOR UNRECOGNIZED SECTION No Status Records Found UNRECOGNIZED CONTENT PROVIDED BELOW FOR UNRECOGNIZED SECTION INFORMATION SOURCE DATE CREATED AUTHOR AUTHOR'S ORGANIZATIO N 07/14/2018 [facility] cobian
== END | disposition home or self-care (01) ==
LOC: MFPLAB 11:14
PROVIDERS: PCP Family Medicine; Visit Provider Family Medicine
DX: E55.9 Vitamin D deficiency, unspecified (principal); E11.9 Type 2 diabetes mellitus without complications
CPT/HCPCS: 36415; 80048; 80061; 82306

== ENCOUNTER → 2020-06-01 08:54 | Outpatient (CLI) | payer BC, SELFPAY ==
[2020-05-24 12:49] VITALS: BMI 39.5
[2020-06-01 10:24] LABS: Free T3 3.1 pg/mL (2.18-3.98); T4 Free Direct 1.17 ng/dL (0.76-1.46); T4 Total, Thyroxin 7.4 ug/dL (4.5-12.1); Thyroid Stim Hormone (TSH) 0.94 uIU/mL (0.358-3.74)
== END ==
PROVIDERS: PCP Family Medicine; Referring Provider Nurse Practitioner Acute Care; Visit Provider Nurse Practitioner Acute Care
DX: R53.83 Other fatigue (principal)
CPT/HCPCS: 36415; 84436; 84439; 84443; 84481

== ENCOUNTER → 2020-08-26 10:08 | Outpatient (CLI) | payer BC, SELFPAY ==
[2020-05-24 12:49] VITALS: BMI 39.5
[2020-08-26 12:18] LABS: Hemoglobin 15.1 g/dL (13.0-16.5); Mean Corp Hgb Conc 33.6 g/dL (32-36); Mean Corpuscular Hgb 29.1 pg (27.0-32.0); Mean Corpuscular Volume 86.7 fL (80-94); Mean Platelet Vol. 11.4 fl (6.2-12.0); Platelet Count 175 K/mm3 (150-450); RBC Distribution Width CV 12.1 % (11.6-14.6); RBC Distribution Width SD 38.7 fl (35.1-43.9); Red Blood Count 5.19 M/mm3 (4.6-6.2); White Blood Count 6.3 K/mm3 (4.4-11.0)
[2020-08-26 12:40] LABS: Vitamin B12 1056 pg/mL (211-911); Vitamin D,25 Hydroxy 30.3 ng/mL
[2020-08-26 12:41] LABS: Erythrocyte Sedimentation Rate 8 mm/hr (0-20)
[2020-08-26 12:46] LABS: ALB/GLOB Ratio 1.2 RATIO (0.9-2.4); AST(SGOT) 22 U/L (15-37); Alanine Aminotransfer ALT/SGPT 52 U/L (16-61); Alkaline Phosphatase 86 U/L (45-117); Anion Gap 6 (5-15); BUN 10 mg/dL (7-18); BUN/Creat Ratio 9.2 RATIO (10-20); Calcium,Total 9.2 mg/dL (8.5-10.1); Chloride 105 mmol/L (98-107); Cholesterol 137 mg/dL (200); Creatinine, Serum 1.09 mg/dL (0.70-1.30); EST Glomerular Filtration Rate 81 mL/min (>60); Est Glom Filt Rate - Afr Amer 98 mL/min (>60); Ferritin 265 ng/mL (26-388); Globulin 3.4 g/dL (2.2-4.2); Glucose 143 mg/dL (74-106); High Density Lipoprotein 37 mg/dL; Iron 92 ug/dL (65-175); Potassium 4.4 mmol/L (3.5-5.1); Protein, Total 7.4 g/dL (6.4-8.2); Sodium Level 138 mmol/L (136-145); Triglycerides 103 mg/dL; Very Low Density Lipoprotein 21 mg/dL (5-40)
[2020-08-29 12:08] LABS: Testosterone, Free 10.89 ng/dL (5.00-21.00)
[2020-08-29 13:05] LABS: Testosterone, % Free 3.24 % (1.50-4.20); Testosterone, Total 336 ng/dL (264-916)
== END ==
PROVIDERS: PCP Family Medicine; Referring Provider Family Medicine; Visit Provider Family Medicine
DX: R53.83 Other fatigue (principal); E11.9 Type 2 diabetes mellitus without complications; E34.9 Endocrine disorder, unspecified
CPT/HCPCS: 36415; 80053; 80061; 82306; 82607; 82728; 83540; 84402; 84403; 85027; 85652

== ENCOUNTER 2021-07-21 08:04 | Outpatient (CLI) | payer BC, SELFPAY ==
[2021-07-21 09:05] LABS: ALB/GLOB Ratio 1.1 RATIO (0.9-2.4); AST(SGOT) 37 U/L (15-37); Alanine Aminotransfer ALT/SGPT 65 U/L (16-61); Albumin, Serum 4.1 g/dL (3.2-5.0); Alkaline Phosphatase 93 U/L (45-117); Anion Gap 4 (5-15); BUN 14 mg/dL (7-18); BUN/Creat Ratio 12.1 RATIO (10-20); Calcium,Total 9.2 mg/dL (8.5-10.1); Chloride 107 mmol/L (98-107); Cholesterol 105 mg/dL (200); Creatinine, Serum 1.16 mg/dL (0.70-1.30); EST Glomerular Filtration Rate 75 mL/min (>60); Est Glom Filt Rate - Afr Amer 91 mL/min (>60); Globulin 3.6 g/dL (2.2-4.2); Glucose 151 mg/dL (74-106); High Density Lipoprotein 31 mg/dL; Potassium 4.3 mmol/L (3.5-5.1); Protein, Total 7.7 g/dL (6.4-8.2); Sodium Level 140 mmol/L (136-145); Thyroid Stim Hormone (TSH) 1.44 uIU/mL (0.358-3.74); Triglycerides 133 mg/dL; Very Low Density Lipoprotein 27 mg/dL (5-40)
== END 2021-07-21 23:59 | disposition short-term general hospital (02) ==
LOC: LAB 08:05
PROVIDERS: PCP Family Medicine; Visit Provider Family Medicine
DX: E78.5 Hyperlipidemia, unspecified (principal); E11.9 Type 2 diabetes mellitus without complications
CPT/HCPCS: 36415; 80053; 80061; 84443

== ENCOUNTER → 2021-12-08 | Outpatient (CLI) | payer BC, SELFPAY ==
[2021-12-08 19:19] LABS: Uric Acid 5.6 mg/dL (3.5-7.2)
== END | disposition home or self-care (01) ==
LOC: MFPLAB 16:56
PROVIDERS: PCP Family Medicine; Visit Provider Family Medicine
DX: M10.9 Gout, unspecified (principal)
CPT/HCPCS: 36415; 84550

== ENCOUNTER → 2022-06-24 | Outpatient (CLI) | payer BC, SELFPAY ==
[2022-06-24 11:02] LABS: ALB/GLOB Ratio 1.4 RATIO (0.9-2.4); AST(SGOT) 26 U/L (15-37); Alanine Aminotransfer ALT/SGPT 74 U/L (16-61); Albumin, Serum 4.3 g/dL (3.2-5.0); Alkaline Phosphatase 92 U/L (45-117); Anion Gap 6 (5-15); BUN 13 mg/dL (7-18); BUN/Creat Ratio 12.3 RATIO (10-20); Calcium,Total 9.5 mg/dL (8.5-10.1); Chloride 104 mmol/L (98-107); Cholesterol 116 mg/dL (200); Creatinine, Serum 1.06 mg/dL (0.70-1.30); EST Glomerular Filtration Rate 83 mL/min (>60); Est Glom Filt Rate - Afr Amer 100 mL/min (>60); Globulin 3.1 g/dL (2.2-4.2); Glucose 197 mg/dL (74-106); High Density Lipoprotein 34 mg/dL; Potassium 4.5 mmol/L (3.5-5.1); Protein, Total 7.4 g/dL (6.4-8.2); Sodium Level 140 mmol/L (136-145); Thyroid Stim Hormone (TSH) 0.86 uIU/mL (0.358-3.74); Triglycerides 138 mg/dL; Very Low Density Lipoprotein 28 mg/dL (5-40)
== END | disposition home or self-care (01) ==
LOC: MFPLAB 09:26
PROVIDERS: PCP Family Medicine; Referring Provider Family Medicine; Visit Provider Family Medicine
DX: E11.9 Type 2 diabetes mellitus without complications (principal)
CPT/HCPCS: 36415; 80053; 80061; 84403; 84443

== ENCOUNTER → 2023-01-14 | Outpatient (CLI) | payer BC, SELFPAY ==
[2023-01-14 12:38] LABS: Erythrocyte Sedimentation Rate 9 mm/hr (0-20)
[2023-01-14 12:41] LABS: Absolute Lymphocyte Count 1.93 X10^3/uL (0.83-4.51); Absolute Neutrophil Count 4.8 X10^3/uL (2.0-7.7); Basophil# 0.09 X10^3/uL; Basophil% 1.1 % (0-1); Eosinophil# 0.81 X10^3/uL; Eosinophils% 9.8 % (0-5); Hematocrit 45.9 % (40-54); Hemoglobin 15.2 g/dL (13.0-16.5); Lymphocyte # 1.93 X10^3/ul (0.83-4.51); Lymphocyte % 23.3 % (19-41); Mean Corp Hgb Conc 33.1 g/dL (32-36); Mean Corpuscular Hgb 28.9 pg (27.0-32.0); Mean Corpuscular Volume 87.3 fL (80-94); Mean Platelet Vol. 11.1 fl (6.2-12.0); Monocyte# 0.58 X10^3/uL; NRBC Flagged by Analyzer 0 % (0-5); Neutrophil % 57.8 % (47-70); Platelet Count 177 K/mm3 (150-450); RBC Distribution Width CV 12.3 % (11.6-14.6); RBC Distribution Width SD 38.9 fl (35.1-43.9); Red Blood Count 5.26 M/mm3 (4.6-6.2); White Blood Count 8.3 K/mm3 (4.4-11.0)
[2023-01-14 13:02] LABS: Vitamin B12 703 pg/mL (211-911); Vitamin D,25 Hydroxy 41.9 ng/mL
[2023-01-14 13:12] LABS: AST(SGOT) 18 U/L (15-37); Alanine Aminotransfer ALT/SGPT 38 U/L (16-61); Albumin, Serum 3.9 g/dL (3.2-5.0); Alkaline Phosphatase 107 U/L (45-117); Anion Gap 5 (5-15); BUN 14 mg/dL (7-18); BUN/Creat Ratio 13.3 RATIO (10-20); Chloride 106 mmol/L (98-107); Cholesterol 93 mg/dL (200); Creatinine, Serum 1.05 mg/dL (0.70-1.30); EST Glomerular Filtration Rate 84 mL/min (>60); Est Glom Filt Rate - Afr Amer 101 mL/min (>60); Globulin 3.8 g/dL (2.2-4.2); Glucose 114 mg/dL (74-106); High Density Lipoprotein 29 mg/dL; Potassium 4.3 mmol/L (3.5-5.1); Protein, Total 7.7 g/dL (6.4-8.2); Sodium Level 136 mmol/L (136-145); Triglycerides 112 mg/dL; Very Low Density Lipoprotein 22 mg/dL (5-40)
== END | disposition home or self-care (01) ==
LOC: MFPLAB 11:28
PROVIDERS: PCP Family Medicine; Visit Provider Family Medicine
DX: E11.9 Type 2 diabetes mellitus without complications (principal); R53.83 Other fatigue
CPT/HCPCS: 36415; 80053; 80061; 82306; 82607; 84403; 85025; 85652

== ENCOUNTER 2024-07-07 11:55 | Emergency (ER) | payer OTHER, BC, SELFPAY ==
[2024-07-07 11:55] VITALS: BP 134/91; PULSE 95; RESP 16; TEMP 36.3; O2SAT 99; BMI 36.1
--- NOTE | 2024-07-07 12:33 | ED.VIS.FALL ---
HPI HPI - Fall History of Present Illness Chief Complaint: Fall Informant: patient Narrative Narrative: Patient states he had a work related injury just prior to arrival. 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 He states he does not believe he hit his head there was no loss of consciousness. He takes no antiplatelet or anticoagulant medications. States his neck is feeling a little stiff, and he is now developing a headache although he did not have 1 initially. Denies any neck pain. He thinks maybe he had a whiplash injury of his neck. [facility] Medical History (Updated 07/07/24 @ 12:[address] Srinivas Salamanca MD) Diabetes type 2, controlled Acute lymphoblastic leukemia (ALL) DANYELLE (obstructive sleep apnea) Home Medications ?Medication ?Instructions ?Recorded ?Last Taken ?Type lisinopril 10 mg tablet 10 mg PO DAILY 08/28/19 Unknown History metformin 500 mg tablet 500 mg PO DAILY 08/28/19 Unknown History Allergy/AdvReac Type Severity Reaction Status Date / Time No Known Allergies Allergy Verified 07/07/24 11:55 Family History Grandmother CHF (congestive heart failure) Parkinsons disease Grandfather Parkinsons disease Surgical History Tonsillectomy planned Boxers fracture Social History Smoking Status: Former smoker Tobacco: How many years used: 1 how long ago did patient quit smokin ROS ROS ED Eyes Eyes: Denies change in vision Cardiovascular Cardiovascular: Denies chest pain Respiratory/Chest Respiratory/Chest: Denies dyspnea Gastrointestinal Gastrointestinal: Denies abdominal pain, nausea or vomiting Musculoskeletal Musculoskeletal: Reports back pain; Denies neck pain Integumentary Denies Abrasions or rash Neurologic Neurologic: Reports headache(s); Denies paresthesias or weakness EXAM Physical Exam Const Vital Signs: 07/07/24 11:55 07/07/24 12:13 07/07/24 13:46 Temperature 97.3 F L 98 F Temperature Source Temporal Pulse Rate 95 88 Respiratory Rate 16 16 Respiratory Effort Normal Respiratory Depth Normal Respiratory Pattern Normal Blood Pressure 134/91 H 125/82 H Blood Pressure Mean 105 96 Pulse Ox 99 99 Oxygen Delivery Method Room Air Room Air Positive well nourished and well developed General Appearance ED: well developed and NAD HEENT Reports nasal mucous membranes and turbinates normal HEENT Narrative: Patient is bald and there is no evidence of scalp injury. atraumatic Face and Sinus: Negative for facial tenderness Eyes PERRL and EOMs intact bilaterally Visual Acuity: other Other Details: no entrapment or pain with extraocular movements Neck full ROM and supple Neck Narrative: Mildly tender in the paraspinal musculature down at the base, trapezius musculature, but no midline tenderness and he has full range of motion without difficulty or limitation. Chest Wall inspection of chest normal and palpation of chest normal Chest: symmetrical chest wall rise; Negative for crepitus or tenderness Resp normal respiratory effort and clear to auscultation bilaterally Percussion: other equal BS bilat Back/Spine normal ROM Back/Spine Narrative: Mild tenderness in the mid-upper thoracic spine, the rhomboids are less tender, there is no step-off or obvious signs of trauma, this does not extend to the T1 and 2 area by the neck. It is more between the scapulae. Cervical Spine: Negative for cervical spine tenderness Lumbar Spine / Lower Back: Negative for lumbar spinal tenderness Extremity normal to inspection and full ROM General Extremety ED: Negative for tenderness Neuro oriented x3, CN's II-XII intact bilaterally, moves all extremities, no focal motor deficits and no sensory deficits noted Dennis Coma Scale: document GCS findings Spontaneous Obeys Commands Oriented 15 Sensorium / Orientation: awake and alert Psych mental status grossly normal and thought process normal Skin no wounds Lesions: no lesions Rashes: no rashes MDM MDM MDM Narrative Medical decision making narrative: Passes Nexus criteria without any midline pain or tenderness in the C-spine, so no imaging required here, but I did do imaging of his thoracic spine where he has midline tenderness. 2 views of my interpretation negative for acute fracture. Patient was given analgesics here reassured given the day off work appropriate discharge instructions. Probably strained his neck as well. Radiography Diagnostic Testing: Clinical Impression(s) from Imaging Studies Thoracic Spine X-Ray 07/07/24 12:40 IMPRESSION: Multilevel degenerative changes. Electronically Signed: Katerine Fuentes MD at 12:53 EST , Discharge Plan Triage Chief Complaint: Fall ED Provider: Srinivas Salamanca Dx/Rx/DC Orders Clinical Impression: Acute cervical myofascial strain, Contusion of thoracic spine, Fall from slipping on ice Instructions: ED Neck Sprain or Strain Prescriptions: No Action metformin 500 mg tablet 500 mg PO DAILY lisinopril 10 mg tablet 10 mg PO DAILY Primary Care Provider: Kennedy Rosado Referrals: [facility] [Group of Physicians] - As soon as possible Kennedy Rosado MD [Primary Care Provider] - Print Language: Latvian Disposition Disposition: Home, Self Care Discharge Date/Time: 07/07/24 13:47
--- NOTE | 2024-07-07 12:40 | RAD_ITS ---
INDICATION: injury/pain EXAMINATION/TECHNIQUE: X-RAY - XR Spine Thoracic 2 Views COMPARISON: Chest radiograph dated November 07, 2012 FINDINGS: VERTEBRAE: Preserved vertebral body height. No fracture. There is multilevel endplate spondylosis. No spondylolisthesis. Preservation of the normal thoracic kyphosis. No significant facet arthropathy. DISCS: There is multilevel degenerative disc disease. INCLUDED CHEST/ABDOMEN: No acute abnormalities. RAD/Thoracic Spine 2 Views IMPRESSION: Multilevel degenerative changes. Electronically Signed: Katerine Fuentes MD at 12:53 EST ,
[2024-07-07] MEDS: Ibuprofen 600 MG Tablet PO (12:50)
[2024-07-07 13:46] VITALS: BP 125/82; PULSE 88; RESP 16; TEMP 36.6; O2SAT 99
== END 2024-07-07 13:47 | disposition home or self-care (01) ==
PROVIDERS: Emergency Provider Emergency Medicine; PCP Family Medicine; Visit Provider Emergency Medicine
DX: S16.1XXA Strain of muscle, fascia and tendon at neck level, initial encounter (principal); E11.9 Type 2 diabetes mellitus without complications; Z87.891 Personal history of nicotine dependence; W00.0XXA Fall on same level due to ice and snow, initial encounter; S20.20XA Contusion of thorax, unspecified, initial encounter; Y92.481 Parking lot as the place of occurrence of the external cause; Y99.0 Civilian activity done for income or pay; Y93.01 Activity, walking, marching and hiking; Z79.84 Long term (current) use of oral hypoglycemic drugs
CPT/HCPCS: 72070; 99282

== ENCOUNTER → 2024-10-09 | Outpatient (CLI) | payer BC, SELFPAY ==
[2024-10-09 11:22] LABS: Hematocrit 45.6 % (40-54); Hemoglobin 15.4 g/dL (13.0-16.5); Mean Corp Hgb Conc 33.8 g/dL (32-36); Mean Corpuscular Hgb 29.5 pg (27.0-32.0); Mean Corpuscular Volume 87.4 fL (80-94); Mean Platelet Vol. 10.8 fl (6.2-12.0); Platelet Count 186 K/mm3 (150-450); RBC Distribution Width CV 12.3 % (11.6-14.6); RBC Distribution Width SD 39.3 fl (35.1-43.9); Red Blood Count 5.22 M/mm3 (4.6-6.2); White Blood Count 6.8 K/mm3 (4.4-11.0)
[2024-10-09 11:32] LABS: Anion Gap 10 (5-15); BUN 13 mg/dL (4-19); BUN/Creat Ratio 11.4 RATIO (10-20); Calcium,Total 9.8 mg/dL (7.6-11.0); Carbon Dioxide 27.9 mmol/L (21.0-32.0); Chloride 104 mmol/L (98-108); Cholesterol 119 mg/dL (<=200); Creatinine, Serum 1.11 mg/dL (0.70-1.20); EST Glomerular Filtration Rate 86 (>60); Glucose 119 mg/dL (70-99); High Density Lipoprotein 36 mg/dL; Low Density Lipoprotein Calc. 55 mg/dL; Potassium 4.1 mmol/L (3.3-5.1); Sodium Level 142 mmol/L (133-145); Triglycerides 142 mg/dL; Very Low Density Lipoprotein 28 mg/dL (5-40)
--- NOTE | 2024-10-09 13:00 | RAD_ITS ---
PROCEDURE: ABDOMEN SINGLE VIEW 10/09/2024 REASON FOR EXAM: CONSTIPATION TECHNIQUE: Single view abdomen. 3 total images to include the entire abdomen and pelvis COMPARISON: None available FINDINGS: Moderate proximal colonic stool without significant appearing stool within the left colon, sigmoid or rectum. No gaseous distention of bowel. No abnormal abdominal calcifications identified. RAD/Abdomen Single View IMPRESSION: Moderate proximal colonic stool. Reading Location: [id number]
== END | disposition home or self-care (01) ==
LOC: MTLAB 07:14
PROVIDERS: PCP Family Medicine
DX: R10.31 Right lower quadrant pain (principal); Z13.220 Encounter for screening for lipoid disorders
CPT/HCPCS: 36415; 74018; 80048; 80061; 85027

== ENCOUNTER → 2025-04-09 | Outpatient (CLI) | payer BC, SELFPAY ==
[2025-04-09 11:55] LABS: Cholesterol 115 mg/dL (<=200); Low Density Lipoprotein Calc. 57 mg/dL; Triglycerides 90 mg/dL; Very Low Density Lipoprotein 18 mg/dL (5-40); cholesterol:hdl ratio screen 2.86
== END | disposition home or self-care (01) ==
LOC: MFPLAB 08:34
PROVIDERS: PCP Family Medicine
DX: E78.5 Hyperlipidemia, unspecified (principal)
CPT/HCPCS: 36415; 80061